=== PATIENT | male | born 1990 | race American Indian/Alaskan Native ===

== ENCOUNTER 2018-04-12 18:18 | Emergency (ER) | payer OTHER ==
[2018-04-12 18:29] VITALS: BP 152/90; PULSE 67; TEMP 98; O2SAT 98
--- NOTE | 2018-04-12 19:10 | C.PDOC ---
History Of Present Illness 27 year old male presents to the ER with a complaint of diarrhea for the past 2 days. Patent reports recent close contact with diarrheal illness. He denies vomiting, is able to tolerate PO but has liquid stools, about 4-5 episodes a day improving today, slightly more formed today, light yellow and mucoid yesterday. Patient started PREP 10 days ago for HIV prophylaxis, denies current high sick exposure. Time Seen by Provider: 04/12/18 18:58 Chief Complaint (Nursing): Abdominal Pain History Per: Patient History/Exam Limitations: no limitations Onset/Duration Of Symptoms: Days (2) Current Symptoms Are (Timing): Still Present Associated Symptoms: Diarrhea. denies: Vomiting Alleviating Factors: None Recent travel outside of the [place]: No Past Medical History Reviewed: Historical Data, Nursing Documentation, Vital Signs Vital Signs: Last Vital Signs Temp 98 F 04/12/18 18:27 Pulse 67 04/12/18 18:27 Resp 20 04/12/18 18:27 BP 152/90 H 04/12/18 18:27 Pulse Ox 98 04/12/18 18:27 Family History: States: Unknown Family Hx - Social History Hx Alcohol Use: Yes Hx Substance Use: No - Immunization History Hx Tetanus Toxoid Vaccination: No Hx Influenza Vaccination: No Hx Pneumococcal Vaccination: No Review Of Systems Constitutional: Positive for: Other (Negative weight loss). Negative for: Fever, Chills Cardiovascular: Negative for: Chest Pain, Palpitations Respiratory: Negative for: Cough, Shortness of Breath Gastrointestinal: Positive for: Diarrhea. 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 Medical Decision Making Medical Decision Making: viral colitis vs PREP intol BRAT diet educated hold PREP for now Disposition Doctor Will See Patient In The: Office Counseled Patient/Family Regarding: Studies Performed, Diagnosis - Disposition Referrals: [facility] [Outside] [facility] [place] [Outside] [facility] [Outside] Disposition: HOME/ ROUTINE Disposition Time: 19:10 Condition: GOOD Additional Instructions: BRAT diet: Bananas, white rice, apples, toast/Bread, Gatorade Maalox 30 cc's (1 tablespoon) 5x/day as needed. Resume normal diet in 2-3 days Hold off on Prep unless high risk exposures expected May restart when diarrhea resolves Instructions: Diarrhea in Adolescents and Adults Forms: [facility] (Filipino), Work Excuse - Clinical Impression Clinical Impression: Diarrhea - Scribe Statement The provider has reviewed the documentation as recorded by the Scribe Anirudh Wesley All medical record entries made by the Scribe were at my direction and personally dictated by me. I have reviewed the chart and agree that the record accurately reflects my personal performance of the history, physical exam, medical decision making, and the department course for this patient. I have also personally directed, reviewed, and agree with the discharge instructions and disposition.
[2018-04-12] MEDS ORDERED: Alum-Mag Hydrox-Simethicone Susp (30 mL) PO STA (19:12)
[2018-04-12] MEDS ORDERED: Alum-Mag Hydrox-Simethicone Susp (30 mL) ONE (19:18)
[2018-04-12] MEDS ORDERED: Aluminum Hydroxide/Magnesium Hydroxide Susp (30 mL) ONE (19:19)
[2018-04-12 19:25] VITALS: RESP 16
== END 2018-04-12 19:24 | disposition home or self-care (01) ==
LOC: C.ER 18:18
DX: R19.7 Diarrhea, unspecified (principal)

== ENCOUNTER 2018-04-13 00:16 | Emergency (ER) | payer SELFPAY ==
[2018-04-13] MEDS ORDERED: Sodium Chloride 0.9% 1,000 ML IV STA (00:52)
--- NOTE | 2018-04-13 00:55 | C.PDOC ---
History Of Present Illness 27 y/o M c no PMHx p/w abdominal pain, loose stool x 3 days. was here earlier today for these symptoms, diagnosed with likely viral colitis, given diet instructions and discharged home. at home, had episode of worsening pain, nausea, diarrhea, chills, back cramping. Patient frightened and came back to ED for further evaluation. Time Seen by Provider: 04/13/18 00:41 Chief Complaint (Nursing): Abdominal Pain Past Medical History Vital Signs: Last Vital Signs Temp 98.2 F 04/13/18 00:23 Pulse 122 H 04/13/18 00:23 Resp 26 H 04/13/18 00:23 BP 126/82 04/13/18 00:23 Pulse Ox 100 04/13/18 00:23 Family History: States: Unknown Family Hx - Social History Hx Alcohol Use: Yes Hx Substance Use: No - Immunization History Hx Tetanus Toxoid Vaccination: No Hx Influenza Vaccination: No Hx Pneumococcal Vaccination: No Review Of Systems Except As Marked, All Systems Reviewed And Found Negative. Constitutional: Negative for: Fever Cardiovascular: Negative for: Chest Pain Physical Exam - Physical Exam Additional Physical Exam Comments: Constitutional: No acute distress. Head: Normocephalic. Atraumatic. Eyes: PERRL. ENT: Moist mucous membranes. Neck: Supple. Cardiovascular: Tachycardic. Chest: No tenderness. Respiratory: Clear to auscultation bilaterally. GI: Diffuse abdominal tenderness. Back: No CVA tenderness. Musculoskeletal: No tenderness or swelling of extremities. Skin: No rash. Neurologic: Alert, no focal deficit. ED Course And Treatment - Laboratory Results Result Diagrams: 04/13/18 01:19 04/13/18 01:19 O2 Sat by Pulse Oximetry: 100 Medical Decision Making Medical Decision Making: CT abd/pel Results: COMMENTS: Fluid filled bowel. The liver is of uniform attenuation without mass or defect. There is no intra or extrahepatic biliary ductal dilatation. The spleen is normal. The gallbladder is within normal limits. The pancreas is of normal contour and attenuation characteristics. There is no evidence of adrenal mass. Both kidneys demonstrate prompt and equal nephrograms. The kidneys are normal in size, shape and configuration. There is no evidence of renal or ureteral mass. No renal or ureteral calculi are identified. There is no hydroureter or hydronephrosis. No evidence for appendicitis. There is no bowel wall thickening. No evidence for small or large bowel obstruction. There is no evidence of abdominal ascites or lymphadenopathy. There is no evidence of intrinsic or extrinsic bladder mass. There is no pelvic ascites or lymphadenopathy. Images of the lung bases show no evidence of pleural or parenchymal mass. There are no pleural effusions. The bony structures are free of lytic or blastic lesions. IMPRESSION: Ileus and/or developing enteritis. Patient in no distress. Will discharge home, f/u primary care, return to ED for worsening pain, fever, vomiting, dyspnea, or any other problem. Disposition - Disposition Referrals: [facility] [Outside] Disposition: HOME/ ROUTINE Disposition Time: 03:21 Condition: STABLE Prescriptions: levoFLOXacin [Levaquin] 1 tab PO DAILY #10 tab Metronidazole [Flagyl] 500 mg PO Q8 #30 tab Ondansetron ODT [Zofran ODT] 4 mg PO Q8 #12 odt Instructions: Diarrhea in Adolescents and Adults Forms: [facility] (Lithuanian) - Clinical Impression Clinical Impression: Enteritis
[2018-04-13] MEDS ORDERED: Iodixanol 320 MG/ML 100 ML BOTTLE IV ONE (01:10)
[2018-04-13] MEDS ORDERED: Sodium Chloride 0.9% 1,000 ML ONE (01:13)
[2018-04-13 01:22] LABS: BASO % 0.3 % (0.0-2.0); EOS % 0.2 % (0.0-4.0); HEMOGLOBIN 14.5 g/dL (12.0-18.0); LYMPH # 0.8 K/uL (1.0-4.3); LYMPH % 13.4 % (20.0-40.0); MEAN CELL VOLUME 75.2 fL (80.0-94.0); MEAN CORPUSCULAR HEMOGLOBIN 24.6 pg (27.0-31.0); MEAN CORPUSCULAR HGB CONC 32.7 g/dL (33.0-37.0); MEAN PLATELET VOLUME 7.2 fL (7.2-11.7); MONO # 1.2 K/uL (0.0-0.8); MONO % 19.8 % (0.0-10.0); NEUT # 4.1 K/uL (1.8-7.0); NEUT % 66.3 % (50.0-75.0); RBC 5.88 Mil/uL (4.40-5.90); RED CELL DISTRIBUTION WIDTH 14.2 % (11.5-14.5); WHITE BLOOD COUNT 6.2 K/uL (4.8-10.8)
[2018-04-13 01:33] LABS: ALB/GLOB RATIO 1.5 (1.0-2.1); ALBUMIN 4.5 g/dL (3.5-5.0); ALT/SGPT 30 U/L (21-72); AST/SGOT 32 U/L (17-59); BLOOD UREA NITROGEN 15 mg/dL (9-20); GFR NON-AFRICAN AMERICAN > 60; LIPASE 108 U/L (23-300)
[2018-04-13 01:58] LABS: URINE BILIRUBIN NEGATIVE (NEGATIVE); URINE BLOOD 2+ (NEGATIVE); URINE CLARITY Clear (Clear); URINE COLOR Yellow (YELLOW); URINE GLUCOSE (UA) NORMAL (Normal); URINE LEUKOCYTE ESTERASE NEG Leu/uL (Negative); URINE PROTEIN NEGATIVE (NEGATIVE); URINE UROBILINOGEN NORMAL mg/dL (0.2-1.0)
[2018-04-13 03:59] VITALS: BP 132/88; PULSE 89; RESP 20; TEMP 98.6; O2SAT 98
--- NOTE | 2018-04-13 10:16 | CT ---
Date of service: 04/13/2018 PROCEDURE: CT Abdomen and Pelvis with contrast HISTORY: abd pain, vomiting COMPARISON: None. TECHNIQUE: Contrast dose: Radiation dose: Total exam DLP = 463.94 mGy-cm. This CT exam was performed using one or more of the following dose reduction techniques: Automated exposure control, adjustment of the mA and/or kV according to patient size, and/or use of iterative reconstruction technique. FINDINGS: LOWER THORAX: Unremarkable. LIVER: Unremarkable. No gross lesion or ductal dilatation. GALLBLADDER AND BILE DUCTS: Unremarkable. PANCREAS: Unremarkable. No gross lesion or ductal dilatation. SPLEEN: Unremarkable. ADRENALS: Unremarkable. No mass. KIDNEYS AND URETERS: Unremarkable. No hydronephrosis. No solid mass. VASCULATURE: Unremarkable. No aortic aneurysm. No aortic atherosclerotic calcification or mural plaque present. BOWEL: Unremarkable. No obstruction. No gross mural thickening. APPENDIX: Normal appendix. PERITONEUM: Unremarkable. No free fluid. No free air. LYMPH NODES: Unremarkable. No enlarged lymph nodes. BLADDER: Unremarkable. REPRODUCTIVE: Unremarkable. BONES: No acute fracture. OTHER FINDINGS: None. IMPRESSION: Unremarkable contrast enhanced CT of the abdomen and pelvis.
== END 2018-04-13 03:49 | disposition home or self-care (01) ==
LOC: C.ER 00:16
DX: K52.9 Noninfective gastroenteritis and colitis, unspecified (principal)
CPT/HCPCS: 74177; 80053; 81001; 83690; 85025; 96361; 96374; 99284; J2405; J7030; Q9967